=== PATIENT | female | born 1970 | race Caucasian/White ===

== ENCOUNTER 2022-11-01 14:38 | Outpatient (CLI) | payer OTHER, SELFPAY | END 2022-11-01 14:39 | disposition home or self-care (01) | PROVIDERS: PCP Family Medicine; Visit Provider Family Medicine | DX: Z00.00 Encounter for general adult medical examination without abnormal findings (principal); I10 Essential (primary) hypertension; Z13.6 Encounter for screening for cardiovascular disorders; Z11.59 Encounter for screening for other viral diseases | CPT/HCPCS: 80053; 80061; 86803 ==

== ENCOUNTER 2023-02-05 09:09 | Outpatient (CLI) | payer OTHER, SELFPAY ==
--- NOTE | 2023-02-05 09:15 | CRLHL7_ITS ---
For Patients: As a result of the Century Cures Act, medical imaging exams and procedure reports are released immediately into your electronic medical record. You may view this report before your referring provider. If you have questions, please contact your health care provider. CLINICAL HISTORY: Heavy bleeding with clots TECHNIQUE: Real time, alvarez scale images were acquired of the pelvis using a transabdominal and transvaginal approach. Color Doppler analysis was performed of the ovaries. FINDINGS: The uterus measures 8.9 x 5.3 x 6.5 centimeters endometrium measures 1.1 centimeters. The right ovary measures 2.1 x 1 x 1.6 centimeters and appears unremarkable. Left ovary not seen. IMPRESSION: 1.1 centimeter endometrial stripe. Dictated by Candy Chaparro MD @ 02/07/2023 5:53:20 AM (Electronically Signed)
--- NOTE | 2023-02-05 10:15 | CRLHL7_ITS ---
For Patients: As a result of the Century Cures Act, medical imaging exams and procedure reports are released immediately into your electronic medical record. You may view this report before your referring provider. If you have questions, please contact your health care provider. BILATERAL SCREENING MAMMOGRAM WITH COMPUTER-AIDED DETECTION TECHNIQUE: CC and MLO views were obtained. These mammographic images have been obtained using full-field digital technique. These mammographic images were interpreted with the benefit of computer-aided detection. COMPARISON FILM: 08/02/21, 02/14/15, 05/11/13. FINDINGS: The breasts are almost entirely fatty IMPRESSION: There is no radiographic evidence for malignancy. ASSESSMENT: BI-RADS Category 2: Benign RECOMMENDATION: Routine screening mammogram in 1 year. A lay language report of this examination will be provided to the patient. Joseph Underwood M.D. Diagnostic Radiologist [email or web address] KI/Dictated by: Joseph Underwood MD @ 02/11/2023 12:18:00 PM (Electronically Signed)
== END 2023-02-05 09:10 | disposition home or self-care (01) ==
PROVIDERS: PCP Family Medicine; Visit Provider Obstetrics & Gynecology
DX: Z12.31 Encounter for screening mammogram for malignant neoplasm of breast (principal); N92.0 Excessive and frequent menstruation with regular cycle; Z87.42 Personal history of other diseases of the female genital tract
CPT/HCPCS: 76830; 77067

== ENCOUNTER 2023-04-10 07:10 | Day surgery (SDC) | payer OTHER, SELFPAY ==
[2023-04-10] MEDS: SODIUM CHLORIDE 0.9 % (FLUSH) 10 ML SYRINGE IVF (07:30)
[2023-04-10] MEDS: LACTATED RINGERS 1000 ML 1,000 ML 100 ML IV (07:30)
[2023-04-10 07:34] VITALS: BP 140/81; PULSE 86; RESP 16; TEMP 36.7; O2SAT 93; BMI 43.4
[2023-04-10 07:46] LABS: Ur HCG Qualitative* Negative (Negative)
[2023-04-10 07:49] LABS: Hemoglobin* 12.8 gm/dL (12.0-16.0)
[2023-04-10 08:08] LABS: Creatinine* 0.8 mg/dL (0.5-1.5); Est. Creatinine Clearance* 69.42; Estimated Glomerular Filt Rate 88 ml/min
--- NOTE | 2023-04-10 08:22 | W.PM.H&PU ---
History & Physical Update History & Physical Update H&P Reviewed and patient assessed: No changes noted
--- NOTE | 2023-04-10 08:52 | W.ANESCHARGE ---
Anesthesia Charges Start Date/Time Anesthesia Start Date: 04/10/23 Anesthesia Start Time: 08:47 Stop Date/Time Anesthesia Stop Date: 04/10/23 Anesthesia Stop Time: 09:51
[2023-04-10 09:47] VITALS: BP 117/79; PULSE 71; RESP 16; TEMP 36.4; O2SAT 94
--- NOTE | 2023-04-10 09:51 | W.ANESCHARGE ---
Anesthesia Charges Start Date/Time Anesthesia Start Date: 04/10/23 Anesthesia Start Time: 08:47 Stop Date/Time Anesthesia Stop Date: 04/10/23 Anesthesia Stop Time: 09:51
[2023-04-10 10:00] VITALS: BP 117/79; PULSE 65; RESP 16; O2SAT 97
[2023-04-10 10:15] VITALS: BP 120/82; PULSE 58; RESP 16; O2SAT 97
--- NOTE | 2023-04-10 10:18 | W.PM.GYNPROC ---
Procedure Note Time Seen by Provider: 10:18 Date of procedure: 04/10/23 Procedure Description: Preoperative diagnosis: Kelle is a 52 yo with abnormal uterine bleeding - polyps Postoperative diagnosis: Same. Procedure (s): (1) Hysteroscopy (2) Dilation and curettage/polypectomy (3) Endometrial ablation. Anesthesia: Mac and paracervical block. Surgeon: Natalie Tovar MD Assist: None Estimated blood loss: <5 mL IV Fluid: 600 mL UOP: 35 cc Fluid deficit: 150 mL. Fluid used: 770 mL Complications: None Specimen: Endometrial curettings/polyp(s), sent to path. Findings: On exam under anesthesia: The cervix and vagina appear normal. The uterus was mid position, approximately 6 week size, mobile and without masses or nodularity palpable. Adnexa were without mass or fullness palpable bilaterally. On hysteroscopy: Long endometrial polyp near the left ostia, sessile polyp on anterior uterine wall near the left ostia and posterior uterine wall near the internal cervical os. No other abnormalities noted. The uterus sounded to 8 cm. Cervical length 3 cm. Cavity length: 5 cm. Procedure: Kelle was taken to the operating room where conscious sedation was found to be adequate. She was placed in a dorsal lithotomy position and an exam under anesthesia was performed with the findings stated above. She was then prepped and draped in a normal sterile manner. An a bivalve is sterile speculum was placed in the vaginal canal. A paracervical block was placed using 1% lidocaine with epinephrine: 5 mL were injected at the 4 and 8 o'clock positions on the cervix. A long tenaculum clamp was placed on the anterior lip of the cervix. The cervix was then dilated to Hegar 6. Uterus sounded to 8 cm. The cervix measured 3 cm. There for the cavity length was 5 cm. The Truclear hysteroscope was advanced into the uterus. A diagnostic hysteroscopy performed with normal saline as the insufflation medium. Findings are stated above. The Truclear incisor was then advanced into the camera and global curettage and polypectomy were performed with this incisor. The cavity appeared normal once the curettage was performed completed. The hysteroscope was removed. The cervix was then dilated to Hegar 8. The Lalitha device was advanced into the uterus. The cavity check was completed but there an error code of 002 which instructed to disconnect and reconnect the Lalitha device. A second attempt still produced the same error code so I requested a new device. Hysteroscope was reinserted into the cavity to assured no occult perforation/injury. The cavity looked intact. A new Lalitha device was used, the cavity check was completed, and the ablation took place over 2 min without issues. The Lalitha was removed, the hysteroscope readvanced to document ablation of the entire cavity. The hysteroscope was then removed. The tenaculum clamp removed from the anterior lip of the cervix. Excellent hemostasis noted. The patient tolerated this procedure well. Sponge, lap and instrument counts were correct x2 at the end of the procedure and the patient was taken to the recovery area in stable condition.
[2023-04-10 10:30] VITALS: BP 127/79; PULSE 59; RESP 16; O2SAT 95
== END 2023-04-10 10:56 | disposition home or self-care (01) ==
PROVIDERS: PCP Family Medicine; Visit Provider Obstetrics & Gynecology
PROC: 0UF98ZZ Fragmentation in Uterus, Via Natural or Artificial Opening Endoscopic (ICD-10-PCS; CPT 58563; principal; 2023-04-10 08:30)
DX: N93.8 Other specified abnormal uterine and vaginal bleeding (principal); N84.0 Polyp of corpus uteri
CPT/HCPCS: 58563; 00952; 36415; 81025; 82565; 85018; 86850; 86900; 86901; 88305; J1100; J1885; J2250; J2405; J2704; J3010; J7120

== ENCOUNTER 2024-02-06 14:39 | Outpatient (CLI) | payer OTHER, SELFPAY | END 2024-02-06 14:40 | disposition home or self-care (01) | PROVIDERS: PCP Family Medicine; Visit Provider Family Medicine | DX: R03.0 Elevated blood-pressure reading, without diagnosis of hypertension (principal); Z13.6 Encounter for screening for cardiovascular disorders; Z83.49 Family history of other endocrine, nutritional and metabolic diseases | CPT/HCPCS: 80053; 80061; 84443 ==